=== PATIENT | female | born 1985 | race African-American/Black ===

== ENCOUNTER 2016-10-22 22:38 | Emergency (ER) | payer OTHER ==
[~2016-10-22] VITALS: Ht 157.5 cm; Wt 65.0 kg
[~2016-10-22 22:38] MED LIST: MTR600X PO; VALA500T60 PO
[2016-10-22 22:42] VITALS: TEMP 36.9; Ht 157.5 cm; Wt 65.0 kg
[2016-10-22] MEDS ORDERED: PRENTAB26 PO (23:03)
[2016-10-22] MEDS ORDERED: MONT1TAB5 PO (23:03)
[2016-10-23 00:04] VITALS: BP 156/91; PULSE 68; O2SAT 100
--- NOTE | 2016-10-23 07:11 | DIAGNOSTIC IMAGING REPORT ---
LEFT ANKLE 3 VIEWS HISTORY: left ankle pain. 11wk COMPARISON: None. FINDINGS: There is no fracture or dislocation. Mild soft tissue swelling. No radiopaque foreign bodies. IMPRESSION: No fractures. Electronically signed by: Cleve Rogers M.D. 10/23/2016 7:09 AM Dictated Date/Time: 10/23/2016 7:08 AM
--- NOTE | 2016-10-23 15:19 | EMERGENCY ROOM VISIT NOTE ---
ED Visit Note First contact with patient: 22:45 CHIEF COMPLAINT: Ankle pain HISTORY OF PRESENT ILLNESS: This 30-year-old female patient presents to the emergency department with complaints of left ankle pain worsening over the past 2-3 days. She does not recall injury or trauma. She states that she is 11 weeks . 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 The patient complains of pain along the outside of the ankle. The patient is without pain of the foot. The patient rates the pain as dull and 7/10. The patient is not comfortably able to bear weight on the foot. Constant pain, worse with movement, weight bearing, and the dependent position. No knee pain, the patient is able to move their toes. No numbness or weakness of the foot, no laceration. The patient has not had a previous fracture to this ankle. The patient has taken nothing for the pain because of the . She is started ice it today which has helped with pain and swelling. The patient denies any other injury. REVIEW OF SYSTEMS: A 6 system review of systems was completed with positives and pertinent negatives listed in the HPI. ALLERGIES: No known allergies MEDICATIONS: No chronic medications PMH: Otherwise healthy SOCIAL HISTORY: Employed and lives locally with family PHYSICAL EXAM: Vital Signs: Reviewed Nurse's notes, vital signs stable. GENERAL : Female, no acute distress, but appears in pain, well-developed, well- nourished. MENTAL STATUS: Alert, oriented to person place and time, and cooperative. MUSCULOSKELETAL: The left ankle is swollen and tender over the lateral malleolus, but the skin is intact and there is no ligamentous instability. There is no fifth metatarsal tenderness. There is no tenderness over the rest of the foot. There is no calf or tibia/fibular tenderness. There is no visual deformity. The foot and toes are warm and well-perfused. Dorsalis pedis pulse 2+. Sensation to pain and light touch is intact. Capillary refill less than 2 seconds. LEFT ANKLE 3 VIEWS HISTORY: left ankle pain. 11wk COMPARISON: None. FINDINGS: There is no fracture or dislocation. Mild soft tissue swelling. No radiopaque foreign bodies. IMPRESSION: No fractures. EMERGENCY DEPARTMENT COURSE: Physical exam and history were performed. Nursing notes and EMR were reviewed. The patient appears to have pain to her left ankle. On exam she does not have significant edema or evidence of infection. There certainly is no Homans sign. X-rays were performed and do not show evidence of fracture per my radiology's interpretation. I discussed options of care with the patient. She will be treated conservatively with Tylenol, Nito wrap, and crutches. She may need to follow-up with orthopedics if symptoms persist. Of note the patient did have a very slightly elevated blood pressure at discharge, however I feel this was more situational than anything. She understands the importance of monitoring this and following with [facility]OVER or her PCP if this persists. She was certainly invited back to the emergency department with any new, worsening, or concerning symptoms. Current/Historical Medications Scheduled Multivit/Min/Iron/Fol Ac/Pren ( Vitamin), 1 TAB PO DAILY Scheduled PRN Montelukast Sodium (Montelukast Sodium), 1 TAB PO DAILY PRN for ALLERGIES Allergies Coded Allergies: NO KNOWN DRUG ALLERGIES (Unverified Allergy, Unknown, RASH, 10/22/16) NKDA Vital Signs Date Time Temp Pulse Resp B/P (MAP) Pulse Ox O2 Delivery O2 Flow Rate FiO2 10/23/16 00:04 68 20 156/91 100 10/22/16 22:42 36.9 84 18 135/87 99 Room Air Departure Information Impression Primary Impression: Left ankle pain Dispostion Home / Self-Care Condition GOOD Forms HOME CARE DOCUMENTATION FORM, Work Instructions, Additional Instructions: Patient was seen and evaluated today in the emergency department fo medical care. Return to work on 10/26/2016. Please excuse. IMPORTANT VISIT INFORMATION Patient Instructions My [facility] Additional Instructions You were seen and evaluated today on an emergency basis only. This is not a substitute for, or an effort to provide, complete comprehensive medical care. It is not possible to recognize and treat all injuries or illnesses in a single emergency department visit. For this reason it is recommended that you followup with your primary care physician this week for ongoing care and evaluation. Continue to wrap your ankle for comfort. Apply ice 20 minutes on and 20 minutes off as tolerated. Use your crutches to help with walking. You may use Tylenol 1000 mg every 6-8 hours as needed for pain control. You are welcome to return to the emergency department anytime with new, worsening, or concerning symptoms. Work Instructions Additional Work Instructions: Patient was seen and evaluated today in the emergency department for medical care. Return to work on 10/26/2016. Please excuse.
== END 2016-10-23 00:06 | disposition home or self-care (01) ==
LOC: C.EDB 22:40 → C.EDC 10-23 00:06
DX: M25.572 Pain in left ankle and joints of left foot (principal); Z33.1 Pregnant state, incidental

== ENCOUNTER 2017-05-05 08:34 | Inpatient (IN) | payer OTHER ==
[~2017-05-05] VITALS: Ht 157.5 cm; Wt 69.8 kg
[~2017-05-05 08:34] MED LIST changes: +MONT1TAB5 PO; -MTR600X PO; +PRENTAB26 PO; -VALA500T60 PO
[2017-05-05] MEDS ORDERED: LACTATED RINGER'S 1000ML 1,000 ML IV PRN (08:46)
[2017-05-05] MEDS ORDERED: BUPIVACAINE 0.25% 30 ML VIAL ONE (09:15)
[2017-05-05] MEDS ORDERED: FENTANYL CITRATE INJ 50 MCG/1 ML 2 ML VIAL ONE (09:16)
[2017-05-05] MEDS ORDERED: EpHEDrine SULFATE INJ 50 MG/ML AMP ONE (09:16)
[2017-05-05] MEDS ORDERED: FENTANYL 2MCG/ML ROPIV 1.25MG/ML 100ML BAG EPI ONE (09:17)
[2017-05-05 09:32] LABS: HEMATOCRIT 37.5 % (37-47); MEAN CELL VOLUME 80.6 fL (80-100); MEAN CORPUSCULAR HEMOGLOBIN 25.8 pg (25-34); MEAN PLATELET VOLUME 10.9 fL (7.4-10.4); PLATELET COUNT 166 K/uL (130-400); RED CELL DISTRIBUTION WIDTH CV 15.1 % (11.5-14.5); RED CELL DISTRIBUTION WIDTH SD 43.1 fL (36.4-46.3); WHITE BLOOD COUNT 5.74 K/uL (4.8-10.8)
[2017-05-05] MEDS ORDERED: VALA500T60 PO (09:44)
[2017-05-05] MEDS ORDERED: LACTATED RINGER'S 1000ML 500 ML IV PRN (09:58)
[2017-05-05] MEDS ORDERED: NALOXONE HCL INJ 1 MG in SODIUM CHLORIDE 0.9% 1000ML 1,000 ML IV PRN (09:58)
[2017-05-05] MEDS ORDERED: FENTANYL 2MCG/ML ROPIV 1.25MG/ML 100ML BAG EPI PRN (10:00)
[2017-05-05] MEDS ORDERED: ONDANSETRON INJ 2 MG/ML 2 ML VIAL IV PRN (10:00)
[2017-05-05] MEDS ORDERED: NALBUPHINE HCL INJ 10 MG/ML AMP IV PRN (10:00)
[2017-05-05] MEDS ORDERED: EpHEDrine SULFATE INJ 50 MG/ML AMP IV PRN (10:00)
[2017-05-05] MEDS ORDERED: NALOXONE HCL INJ 0.4 MG/1 ML VIAL/CARP IV PRN (10:00)
[2017-05-05] MEDS ORDERED: DiphenhydrAMINE HCL 50 MG/ML VIAL IV PRN (10:00)
[2017-05-05] MEDS: LACTATED RINGER'S 1000ML 1,000 ML IV SCH (10:04)
[2017-05-05] MEDS ORDERED: OXYTOCIN 30 UNITS/500ML NSS IV ONE (10:42)
[2017-05-05] MEDS ORDERED: ACETAMINOPHEN 325 MG TAB PO PRN (10:45)
[2017-05-05] MEDS ORDERED: OXYTOCIN 30 UNITS/500ML NSS IV PRN (10:45)
[2017-05-05] MEDS ORDERED: MEASLES, MUMPS & RUBELLA VIRUS VIAL SQ. ONE (10:45)
[2017-05-05] MEDS ORDERED: DIPHTHERIA/TETANUS/PERTUSSIS 0.5 ML SYR/VIAL IM. ONE (10:45)
--- NOTE | 2017-05-05 10:52 | Vaginal Delivery Summary ---
Vaginal Delivery Summary Delivery Note live male over intact perineum GUSTAVO with a tight nuchal cord x1 reduced at delivery. Apgars 8/10 and weight is pending. Delayed cord clamping followed by cord blood collection. Placenta delivered spontaneously and intact. No tears. EBS 200 ml. Final sponge and instrument count are correct. Mom and baby stable.
[2017-05-05] MEDS ORDERED: LACTATED RINGER'S 1000ML 1,000 ML IV SCH (11:00)
--- NOTE | 2017-05-05 11:22 | Anesthesia Procedure Note ---
Anesthesia Epidural Removal Nt Date & Time May 05, 2017 at 11:21 Vital Signs Pain Intensity: 1 Notes Mental Status: alert / awake / arousable, participated in evaluation Nausea / Vomiting: adequately controlled Pain: adequately controlled Airway Patency, RR, SpO2: stable & adequate BP & HR: stable & adequate Hydration State: stable & adequate Neuraxial Anesthesia: was administered Anesthetic Complications: no major complications apparent, pt satisfied with anesthetic care Epidural: removed without complications, with tip intact
[2017-05-05 12:13] VITALS: Ht 157.5 cm; Wt 69.8 kg
[2017-05-05 13:25] VITALS: BP 161/75; PULSE 65; TEMP 36.8
[2017-05-05 15:35] VITALS: BP 133/79; PULSE 70; TEMP 36.8; O2SAT 100
[2017-05-05] MEDS: IBUPROFEN 600 MG TAB PO PRN (18:53)
[2017-05-05 19:15] VITALS: BP 113/76; PULSE 86; TEMP 36.8; O2SAT 96
[2017-05-05] MEDS: DOCUSATE SODIUM 100 MG CAP PO SCH (20:02)
[2017-05-05 23:35] VITALS: BP 136/85; PULSE 69; TEMP 36.4; O2SAT 99
[2017-05-06 03:45] VITALS: BP 118/72; PULSE 70; TEMP 36.8
[2017-05-06 07:15] VITALS: BP 127/87; PULSE 87; TEMP 36.2; O2SAT 97
[2017-05-06 07:19] LABS: HEMATOCRIT 36.8 % (37-47); HEMOGLOBIN 11.7 g/dL (12.0-16.0)
[2017-05-06] MEDS: DOCUSATE SODIUM 100 MG CAP PO SCH ×2 (07:37→20:33)
[2017-05-06] MEDS: PRENATAL VITAMIN TAB PO SCH (07:37)
[2017-05-06] MEDS: IBUPROFEN 600 MG TAB PO PRN ×3 (07:38→22:20)
--- NOTE | 2017-05-06 09:50 | OB/GYN Progress Note ---
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 Subjective conversation w/ patient, physical exam Ambulation: ambulating normally Voiding: no voiding problems Passing Gas: Yes Diet Tolerance: Regular Diet Feeding Type: Breast Feeding Objective Vital Signs Date Time Temp Pulse Resp B/P (MAP) Pulse Ox O2 Delivery O2 Flow Rate FiO2 05/06/17 07:15 97 Room Air 05/06/17 07:15 36.2 87 18 127/87 (100) 97 Room Air 05/06/17 03:45 36.8 70 18 118/72 (87) Room Air 05/05/17 23:35 99 Room Air 05/05/17 23:35 36.4 69 18 136/85 (102) 99 Room Air 05/05/17 19:15 36.8 86 18 113/76 (88) 96 Room Air 05/05/17 15:35 100 Room Air 05/05/17 15:35 36.8 70 20 133/79 (97) 100 Room Air 05/05/17 13:25 36.8 65 24 161/75 Physical Exam General Appearance: WELL-APPEARING, NO APPARENT DISTRESS Abdomen: normal bowel sounds, non tender, soft Fundus: Firm Extremities: non-tender, normal inspection Laboratory Results Last 24 Hours Test 05/06/17 06:53 Hemoglobin 11.7 g/dL Hematocrit 36.8 % Assessment and Plan Post- Day Number: 1 Continue Routine Care: TENT D/C IN am
[2017-05-06 15:00] VITALS: BP 115/76; PULSE 72; TEMP 36.4
[2017-05-06 19:30] VITALS: BP 127/78; PULSE 86; TEMP 36.4; O2SAT 99
[2017-05-06] MEDS ORDERED: BISACODYL 5 MG TABEC PO SCH (20:00)
[2017-05-06 23:55] VITALS: BP 117/72; PULSE 85; TEMP 36.8; O2SAT 97
[2017-05-07] MEDS: LACTATED RINGER'S 1000ML 1,000 ML IV SCH (00:46)
[2017-05-07] MEDS ORDERED: BISACODYL 10 MG SUPP PR PRN (07:00)
[2017-05-07 07:20] VITALS: BP 128/81; PULSE 85; TEMP 36.8; O2SAT 99
[2017-05-07] MEDS: PRENATAL VITAMIN TAB PO SCH (08:16)
[2017-05-07] MEDS: DOCUSATE SODIUM 100 MG CAP PO SCH (08:16)
--- NOTE | 2017-05-07 09:22 | OB/GYN Progress Note ---
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 Subjective conversation w/ patient, physical exam Ambulation: ambulating normally Voiding: no voiding problems Passing Gas: Yes Diet Tolerance: Regular Diet Lochia: Moderate Feeding Type: Breast Feeding Review of Systems Constitutional: No fever, No chills, No sweats, No weight loss, No weakness, No fatigue, No problem reported Respiratory: No cough, No sputum, No wheezing, No shortness of breath, No dyspnea on exertion, No dyspnea at rest, No hemoptysis, No problem reported Cardiac: No chest pain, No orthopnea, No PND, No edema, No claudication, No palpitations, No problem reported Breast: No see HPI, No breast lump, No change in shape, No nipple discharge, No breast pain, No problem reported Abdomen: No pain, No nausea, No vomiting, No diarrhea, No constipation, No GI bleeding, No problem reported Female : No see HPI, No dysuria, No urinary frequency, No hematuria, No incontinence, No abnormal vaginal bleeding, No vaginal discharge, No problem reported Objective Vital Signs Date Time Temp Pulse Resp B/P (MAP) Pulse Ox O2 Delivery O2 Flow Rate FiO2 05/07/17 07:20 36.8 85 18 128/81 (97) 99 Room Air 05/07/17 07:20 99 Room Air 05/06/17 23:55 97 Room Air 05/06/17 23:55 36.8 85 16 117/72 (87) 97 Room Air 05/06/17 19:30 36.4 86 20 127/78 (94) 99 Room Air 05/06/17 15:00 Room Air 05/06/17 15:00 36.4 72 20 115/76 (89) Room Air Physical Exam General Appearance: WELL-APPEARING, WD/WN, NO APPARENT DISTRESS Respiratory/Chest: chest non-tender, lungs clear, normal breath sounds Cardiovascular: regular rate, rhythm, no edema, no gallop Abdomen: normal bowel sounds, non tender, soft Fundus: Firm Extremities: normal range of motion, non-tender, normal inspection Assessment and Plan Post- Day Number: 2 Continue Routine Care: PPD #2 pt doing well disch home with instructions
[2017-05-07] MEDS ORDERED: MTR600X PO (09:23)
--- NOTE | 2017-05-07 09:24 | Discharge Instructions ---
Discharge Instructions Date of Service May 07, 2017. Admission Reason for Admission: Check Labor Discharge Discharge Diagnosis / Problem: Discharge Goals Goal(s): Routine recovery after delivery Activity Recommendations Activity Limitations: as noted below ACTIVITY RECOMMENDATIONS: * Gradual return to full activity over the next 2-3 weeks. * No lifting - nothing heavier than baby over the next 2-3 weeks. * Do not engage in vigorous exercise, sexual activity or sports until cleared by your physician. * Do not drive or operate any motorized equipment until cleared by your physician. * You may shower/bathe daily. BREAST CARE: If you are not breast feeding: * Wear a supportive bra 24 hours a day for one to two weeks. * Avoid stimulating your breasts and nipples as much as possible during the first few weeks after delivery. * When taking a shower, have the warm water hit your back, not breasts. * When your breasts feel full, apply ice packs. Usually three to four times a day helps ease the discomfort. * Take a mild pain medication (Tylenol/Motrin) when you are uncomfortable. If breast feeding: * Use breast milk to lubricate nipples. Lansinoh cream may be used for sore nipples. You do not need to remove cream prior to breast feeding. If using a different brand of cream, check the label for directions regarding removal of cream prior to nursing. * Wear a supportive bra. * If having problems with breasts or breast feeding, call a technology applications consultant or your health care provider. EPISIOTOMY CARE: After delivery, if you have an episiotomy (stitches), the following steps will ease discomfort and aid healing. * For the first 24 hours after delivery, place ice packs next to your episiotomy to help reduce swelling. * After the first 24 hour-period, sitz baths, either portable or in the tub, are suggested. A shower with a shower arm sprayed over the episiotomy may be comforting. * Su care should be done after each voiding and bowel movement. Squirt warm water from a plastic bottle over the perineum (region of the body between the anus and urinary opening) and pat dry. * Use Dermoplast to ease discomfort. Shake container. [place] directly over the episiotomy. * Place a Tucks on a clean sanitary pad next to your episiotomy. OVER THE COUNTER MEDICATION: * For discomfort or pain, you may use Acetaminophen (Tylenol), Ibuprofen (Advil ), or Naproxen (Aleve) following the package directions. * For constipation you may use Colace following the package directions. SPECIAL CARE INSTRUCTIONS: When you are discharged from the hospital, it is important for you to follow the instructions listed below: * During the first week at home, you should be able to care for yourself and your baby. In addition, the usual light household activities are encouraged. * Limit your activities to the way you feel. Do not try to clean the house or move furniture. Be sensible. * If you actively engage in sports and have done so up until the time of your delivery, you may resume these activities as soon as you feel able. This may take up to one month or even longer. Use good judgment. * Continue to take your vitamins for at least six weeks after the of your baby. * Your diet need not be limited unless you were on a special diet before your delivery. Breast-feeding mothers need around 2500 calories per day and at least 64-80 ounces of fluid per day (8 to 10 glasses). * You should eat foods from the four major food groups. Crash diets or fad diets are to be avoided. Eating lean meats, fresh fruits and vegetables, low-fat dairy products, high fiber foods and a regular exercise program, will help you get back to your pre- weight without putting your health at risk. * Constipation is sometimes a problem after delivery. Take a mild laxative as needed. If breast feeding, Milk of Magnesia is acceptable to use. You may use a suppository or Fleets enema if no episiotomy. * A daily shower or tub bath is suggested. Be sure to thoroughly and gently dry the perineum. * A bloody vaginal discharge will usually continue until around four weeks post . A small amount of bleeding may continue for as long as six weeks. Vaginal discharge changes from the bright red bleeding after delivery to pink then brownish and finally yellowish-pink before becoming white and disappearing. * Bleeding may increase with activity. Your first period may come in 4-8 weeks. If you are breast feeding, your period may be delayed even longer. * [place] (sex) can begin whenever both you and your partner feel comfortable and do not have any form of genital infection. It is recommended that you wait until after your return appointment and discuss with your physician. If you have questions, please talk to your health care practitioner. A condom should be used to prevent infection and . * Foreplay, gentle intercourse and lubrication is very important the first several times to prevent pain. A water-based lubricant such as K-Y jelly or Astroglide may be used. * Tampons may be used six weeks after delivery. * Douching should be avoided for 6 weeks after delivery. * If you have RH negative blood and your baby is RH positive, you will receive RHOGAM by injection prior to discharge. The nurse will give you a card to keep with you that has the date and place that you received RHOGAM after delivery. * During your care, you had a Rubella screen done to check for the presence of rubella antibodies in your blood. If your test was negative, you will receive a Rubella vaccine prior to discharge. This vaccine may cause a fever, soreness at the injection site and flu-like symptoms. If these symptoms persist, notify your health care practitioner. is not advised for three months after a Rubella vaccine. There is a higher chance of having a baby with defects if conceived within three months of getting the vaccine. * If you were discharged 24 hours from delivery or before 48 hours: Visiting nurses will come to your home 48 hours after discharge to assess you and your baby. The visiting nurse will meet with you while you are in the hospital to arrange a time and get directions to your home. * Verbalizes understanding of car seat law as reviewed with patient nursing. * Car Seat hand-out given and reviewed with patient by nursing. * Shaken baby information reviewed with patient by nursing. Call you doctor if: * Heavy bleeding (saturating several pads an hour) or passing clots the size of your fist. * A fever >101 degrees F (38.3 degrees C) on two occasions four hours apart and/or chills. * Unusual pain in the pelvic or vaginal areas. * "Baby Blues" lasting longer than two weeks. If you have any questions or concerns, call your health care practitioner at . FOLLOW-UP VISIT: * Please call the office at to schedule a 6 week examination. It is important you keep this appointment. * It is important for you to make arrangements for either yearly or twice yearly check-ups thereafter. . Current Hospital Diet Patient's current hospital diet: Regular OB Diet Discharge Diet Recommended Diet: Regular Diet Pending Studies Studies pending at discharge: no Medical Emergencies . Who to Call and When: Medical Emergencies: If at any time you feel your situation is an emergency, please call 911 immediately. . Non-Emergent Contact Non-Emergency issues call your: Specialist . . "Provider Documentation" section prepared by Van Espino. . VTE Core Measure Inpt VTE Proph given/why not?: Treatment not indicated
[2017-05-07 11:24] VITALS: BP_DIAS 81; PULSE 85; TEMP 36.8
== END 2017-05-07 13:30 | disposition home or self-care (01) | DRG 775 ==
LOC: C.LD 08:34 → C.OPB 08:34 → C.LD 08:47 → C.OBG 14:58
PROVIDERS: ADMIT Obstetrics & Gynecology; ATTEND Obstetrics & Gynecology
PROC: 10E0XZZ Delivery of Products of Conception, External Approach (ICD-10-PCS; principal; 2017-05-05)
DX: O69.81X0 Labor and delivery complicated by cord around neck, without compression, not applicable or unspecified (principal); Z37.0 Single live birth; Z3A.38 38 weeks gestation of pregnancy